=== PATIENT | male | born 1975 | race Caucasian/White ===

== ENCOUNTER 2018-01-31 19:43 | Emergency (ER) | payer SELFPAY ==
[~2018-01-31] VITALS: Ht 177.8 cm; Wt 105.0 kg
[2018-01-31] MEDS ORDERED: TETANUS, DIPHTHERIA, PERTUSSIS VAC/PF 0.5ML (>7YR OLD) IM ONE (21:00)
[2018-01-31] MEDS ORDERED: BACITRACIN ZINC OINT UDPKT TOP ONE (21:00)
[2018-01-31] MEDS ORDERED: ACETAMINOPHEN 325MG TABLET PO ONE (21:00)
[2018-02-01 00:46] VITALS: BP 151/87
== END 2018-02-01 00:46 | disposition home or self-care (01) ==
LOC: ER 20:35
DX: S00.81XA Abrasion of other part of head, initial encounter (principal); W18.39XA Other fall on same level, initial encounter; Y93.89 Activity, other specified; Y92.89 Other specified places as the place of occurrence of the external cause; Y99.8 Other external cause status
CPT/HCPCS: 73080; 73110; 73130; 90471; 90715; 99284